=== PATIENT | female | born 1945 | race Hispanic/Latino ===

== ENCOUNTER 2017-05-29 12:22 | Day surgery (SDC) | payer MEDICARE, BC ==
[2016-03-07 09:34] VITALS: BMI 21.4
[2017-05-29 13:04] LABS: BASO # 0.02 K/mm3 (0.0-2.0); BASO % 0.4 % (0.0-3.0); EOS # 0.1 (0.0-0.7); EOS % 1.8 % (1.5-5.0); GRAN # 2.87 (1.4-6.5); GRAN % 58.4 % (50.0-68.0); HEMATOCRIT 41.8 % (36.0-48.0); LYMPH # 1.6 (1.2-3.4); LYMPH % 32.7 % (22.0-35.0); MEAN CELL VOLUME 94.1 fl (80.0-105.0); MEAN CORPUSCULAR HEMOGLOBIN 31.1 pg (25.0-35.0); MEAN PLATELET VOLUME 10.9 fl (7.0-11.0); MONO # 0.3 (0.1-0.6); MONO % 6.7 % (1.0-6.0); RED CELL DISTRIBUTION WIDTH 13.2 % (11.5-14.5); WHITE BLOOD COUNT 4.9 10^3/ul (4.5-11.0)
[2017-05-29 13:08] LABS: BLOOD UREA NITROGEN 16 mg/dL (7-21); CALCIUM 10.3 mg/dL (8.4-10.5); CARBON DIOXIDE 27 mmol/L (21-33); CHLORIDE 105 mmol/L (98-107); GFR AFRICAN-AMERICAN > 60; GLUCOSE,RANDOM 84 mg/dL (70-110); POTASSIUM 4.1 mmol/L (3.6-5.0); SODIUM 140 mmol/L (132-148)
[2017-05-29 13:10] LABS: INR 1.04 (0.93-1.08); PARTIAL THROMBOPLASTIN TIME 28.2 Seconds (25.1-36.5)
[2017-05-29] MEDS ORDERED: Midazolam 2 MG/2 ML VIAL ONE (14:21)
[2017-05-29] MEDS ORDERED: Oxycodone/Acetaminophen 5/325 mg Tab PO PRN (14:57)
[2017-05-29] MEDS ORDERED: Sodium Chloride 0.45% 1,000 ML IV SCH (15:00)
[2017-05-29 15:19] VITALS: O2SAT 100
--- NOTE | 2017-05-29 15:30 | US ---
PROCEDURE: Ultrasound-guided right thyroid fine needle aspiration biopsy. CLINICAL HISTORY: Hypothyroidism. Dominant 1.5 cm hypoechoic right lower pole thyroid nodule. Evaluate for malignancy PHYSICIAN(S): Tahir Gaston M.D. TECHNIQUE: The relative risks and indications for the procedure were explained to the patient and consent obtained. The patient was placed supine on the stretcher with the neck extended and preliminary sonography of the thyroid performed. This reveal a lobulated 1.5 cm hypoechoic nodule in the right lower pole. The neck was prepped and draped in the usual sterile fashion. Conscious sedation and monitoring were provided throughout the procedure by a nurse. 1% Xylocaine was used to anesthetize the skin and soft tissues at the access site. Three passes with a 22-gauge needle were performed under ultrasound guidance for fine needle aspiration of the 1.5 cm hypoechoic nodule in the right thyroid. The slides were reviewed by pathology and deemed adequate. The patient tolerated the procedure well. IMPRESSION: 1. Ultrasound guided fine needle aspiration of a 1.5 cm hypoechoic nodule in the right lower pole.
[2017-05-29 16:13] VITALS: RESP 20; TEMP 97.4
[2017-05-29 16:44] VITALS: BP 159/86; PULSE 79
== END 2017-05-29 17:30 | disposition home or self-care (01) ==
LOC: SDS 12:22
PROVIDERS: ATTEND Radiology Vascular & Interventional Radiology
DX: E04.1 Nontoxic single thyroid nodule (principal); E03.9 Hypothyroidism, unspecified; M81.0 Age-related osteoporosis without current pathological fracture
CPT/HCPCS: 10022; 36415; 76942; 80048; 85025; 85610; 85730; 88173; 88305; J2250; J2405; J3010; J7030

== ENCOUNTER 2017-10-17 07:56 | Day surgery (SDC) | payer MEDICARE, BC ==
[2016-03-07 09:34] VITALS: BMI 21.4
[2017-10-17] MEDS ORDERED: Propofol 10 mg/ml Inj (20 ML) ONE ×3 (08:13→09:09)
[2017-10-17] MEDS ORDERED: Lidocaine 2% Inj (20ml) ONE (08:13)
[2017-10-17] MEDS ORDERED: Sodium Chloride 0.9% 1,000 ML IV SCH (09:30)
[2017-10-17 10:45] VITALS: BP 165/76; PULSE 58; RESP 18; TEMP 97.8; O2SAT 95
== END 2017-10-17 10:52 | disposition home or self-care (01) ==
LOC: ENDO 07:56
PROVIDERS: ATTEND Internal Medicine Gastroenterology
DX: Z12.11 Encounter for screening for malignant neoplasm of colon (principal); K63.5 Polyp of colon; K64.1 Second degree hemorrhoids; K59.01 Slow transit constipation
CPT/HCPCS: 45381; 45384; 88305; J2704; J7040 ×2